=== PATIENT | male | born 1985 | race African-American/Black ===

== ENCOUNTER 2019-02-08 03:46 | Emergency (ER) | payer OTHER, SELFPAY ==
[2019-02-08] MEDS ORDERED: Amoxicillin/Potassium Clav 875 MG TAB ONE (04:34)
[2019-02-08] MEDS ORDERED: Dexamethasone 10 MG/ML VIAL ONE (04:34)
[2019-02-08] MEDS ORDERED: Ketorolac Tromethamine 60 MG/2 ML VIAL ONE (04:34)
--- NOTE | 2019-02-08 07:33 | CT ---
CT ORBITS: Date: 02/08/19 INDICATION: Injury, pain, infection. Right side facial injury. FINDINGS: There is a comminuted, displaced medial right orbital wall fracture with extension of fracture fragme nts into the right ethmoid sinus with associated sinus opacification. There is retrobulbar emphysema, although no significant retrobulbar mass effect. A slight degree of extraconal fat stranding is pres ent, likely edema/mild contusion. Preseptal hematoma and nasal soft tissue hematoma present to the ri ght of midline. The intraocular lenses are intact. The globes maintain appropriate morphology. There is suggestion of a slight degree of right-sided proptosis. The above described medial right orbital w all fracture does involve the region of the right maxillary antrum with associated opacification and fluid level. There is a mild buckling of the right nasal bone. IMPRESSION: 1. Displaced and comminuted medial right orbital wall fracture with fracture extension into the righ t maxillary antrum. There is a slight degree of right-sided proptosis suggested, along with mild extr aconal edema/contusion. There is also mild retrobulbar emphysema. 2. Slight medial deviation of the medial rectus is noted, although there is no direct injury of the muscle into the fracture defect. Recommend clinical correlation to exclude developing signs of entrap ment. Ophthalmology consultation may prove useful, in this regard. POS: CYNDY
== END 2019-02-08 06:00 | disposition home or self-care (01) ==
LOC: ERS 03:46
DX: S02.81XA Fracture of other specified skull and facial bones, right side, initial encounter for closed fracture (principal); J01.80 Other acute sinusitis; B96.89 Other specified bacterial agents as the cause of diseases classified elsewhere; F17.210 Nicotine dependence, cigarettes, uncomplicated; F32.9 Major depressive disorder, single episode, unspecified; X58.XXXA Exposure to other specified factors, initial encounter; Z71.6 Tobacco abuse counseling
CPT/HCPCS: 70480; 96372; 99406; J1100; J1885

== ENCOUNTER 2020-06-13 11:41 | Emergency (ER) | payer SELFPAY ==
[2020-06-13] MEDS ORDERED: Ketorolac Tromethamine 30 MG/ML VIAL ONE (12:39)
== END 2020-06-13 12:59 | disposition home or self-care (01) ==
LOC: ERS 11:41
DX: S29.012A Strain of muscle and tendon of back wall of thorax, initial encounter (principal); F32.9 Major depressive disorder, single episode, unspecified; F17.210 Nicotine dependence, cigarettes, uncomplicated; X50.9XXA Other and unspecified overexertion or strenuous movements or postures, initial encounter
CPT/HCPCS: 99283; J1885

== ENCOUNTER 2020-06-17 17:06 | Emergency (ER) | payer SELFPAY ==
[2020-06-17 18:12] LABS: #Basophils 0.1 thou/uL (0.0-0.2); #Eosinphils 0.1 thou/uL (0.0-0.7); #Lymphocytes 1.5 thou/uL (1.20-3.40); #Monocytes 0.7 thou/uL (0.11-0.59); #Neutrophils 2.6 thou/uL (1.40-6.50); %Basophils 1.1 % (0.0-1.0); %Lymphocytes 30.8 % (21.0-51.0); %Monocytes 13.6 % (0.0-10.0); %Neutrophils 51.6 % (42.0-75.0); Hemoglobin 14.3 g/dL (14.0-18.0); Mean Corpuscular HGB CONC 30.4 g/dL (32.0-36.0); Mean Corpuscular Hemoglobin 25.7 pg (27.0-31.0); Mean Corpuscular Volume 84.7 fL (78.0-98.0); Platelet Count 256 thou/uL (130-400); RBC Distribution Width 13.2 % (11.5-14.5); Red Blood Cell (RBC) Count 5.57 mill/uL (4.70-6.10)
[2020-06-17 18:33] LABS: ALT (SGPT) 38 U/L (8-55); AST (SGOT) 50 U/L (5-34); Albumin 4.3 g/dL (3.5-5.0); Alkaline Phosphatase 107 U/L (40-110); Anion Gap 13 mmol/L (10-20); BUN (Urea Nitrogen) 18 mg/dL (8.9-20.6); Bilirubin, Total 1.1 mg/dL (0.2-1.2); Calc. Creatinine Clearance 0 mL/min (70-130); Calcium 9.4 mg/dL (7.8-10.44); Carbon Dioxide 27 mmol/L (22-29); Chloride 105 mmol/L (98-107); Estimated GFR-MDRD 62; Glucose 100 mg/dL (70-105); Potassium 3.5 mmol/L (3.5-5.1); Protein, Total 8.3 g/dL (6.0-8.3); Sodium 141 mmol/L (136-145)
--- NOTE | 2020-06-17 18:52 | CT ---
CT BRAIN NONCONTRAST: DATE: 06/17/2020 HISTORY: 34-year-old male with vertigo, dizziness, nausea, and vomiting FINDINGS: There is no evidence of acute intra-axial or extra-axial hemorrhage. There is no midline shift or any other mass effect. There is no extra-axial fluid collection. The ventricles are normal in size and configuration. The tympanomastoid cavities, and the upper portions of the paranasal sinuses included in these images, are grossly clear. Calvarium is intact. 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 IMPRESSION: 1. 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 2. Otherwise normal.
[2020-06-17] MEDS ORDERED: Ondansetron ODT 4 MG TAB ONE (19:21)
[2020-06-17] MEDS ORDERED: Meclizine HCl 25 MG TAB ONE (19:21)
== END 2020-06-17 20:03 | disposition home or self-care (01) ==
LOC: ERS 17:06
DX: R11.2 Nausea with vomiting, unspecified (principal); R42 Dizziness and giddiness; F17.210 Nicotine dependence, cigarettes, uncomplicated; E11.649 Type 2 diabetes mellitus with hypoglycemia without coma
CPT/HCPCS: 36415; 70450; 80053; 85025; Q0162

== ENCOUNTER 2020-07-28 18:15 | Emergency (ER) | payer SELFPAY ==
[2020-07-28] MEDS ORDERED: Ondansetron ODT 4 MG TAB ONE (22:02)
[2020-07-28 22:04] LABS: #Basophils 0.1 thou/uL (0.0-0.2); #Eosinphils 0.1 thou/uL (0.0-0.7); #Lymphocytes 1.4 thou/uL (1.20-3.40); #Monocytes 0.7 thou/uL (0.11-0.59); #Neutrophils 2.5 thou/uL (1.40-6.50); %Basophils 1.1 % (0.0-1.0); %Eosinophils 2.7 % (0.0-10.0); %Lymphocytes 29.5 % (21.0-51.0); %Monocytes 14.8 % (0.0-10.0); %Neutrophils 51.9 % (42.0-75.0); Hemoglobin 13.9 g/dL (14.0-18.0); Mean Corpuscular HGB CONC 32.5 g/dL (32.0-36.0); Mean Corpuscular Hemoglobin 27.3 pg (27.0-31.0); Mean Corpuscular Volume 83.9 fL (78.0-98.0); Mean Platelet Volume 7.7 fL (7.4-10.4); Platelet Count 259 thou/uL (130-400); RBC Distribution Width 12.8 % (11.5-14.5); Red Blood Cell (RBC) Count 5.09 mill/uL (4.70-6.10); White Blood Cell (WBC) Count 4.7 thou/uL (4.8-10.8)
[2020-07-28 22:25] LABS: ALT (SGPT) 39 U/L (8-55); AST (SGOT) 49 U/L (5-34); Albumin 4.3 g/dL (3.5-5.0); Alkaline Phosphatase 106 U/L (40-110); Anion Gap 15 mmol/L (10-20); BUN (Urea Nitrogen) 18 mg/dL (8.9-20.6); Bilirubin, Total 1.1 mg/dL (0.2-1.2); Calc. Creatinine Clearance 0 mL/min (70-130); Calcium 9.3 mg/dL (7.8-10.44); Carbon Dioxide 25 mmol/L (22-29); Chloride 103 mmol/L (98-107); Globulin 4.1 g/dL (2.4-3.5); Glucose 86 mg/dL (70-105); Lipase 4 U/L (8-78); Potassium 3.9 mmol/L (3.5-5.1); Protein, Total 8.4 g/dL (6.0-8.3); Sodium 139 mmol/L (136-145)
== END 2020-07-28 23:54 | disposition home or self-care (01) ==
LOC: ERS 18:15
DX: R11.2 Nausea with vomiting, unspecified (principal); F17.210 Nicotine dependence, cigarettes, uncomplicated
CPT/HCPCS: 36415; 80053; 83690; 85025; 99283; Q0162

== ENCOUNTER 2020-08-14 19:36 | Emergency (ER) | payer SELFPAY ==
[2020-08-14 21:52] LABS: #Eosinphils 0.3 thou/uL (0.0-0.7); #Lymphocytes 1.7 thou/uL (1.20-3.40); #Monocytes 0.5 thou/uL (0.11-0.59); #Neutrophils 1.6 thou/uL (1.40-6.50); %Basophils 0.9 % (0.0-1.0); %Eosinophils 7.1 % (0.0-10.0); %Lymphocytes 40.8 % (21.0-51.0); %Monocytes 12.2 % (0.0-10.0); Hemoglobin 15.3 g/dL (14.0-18.0); Mean Corpuscular HGB CONC 32.8 g/dL (32.0-36.0); Mean Corpuscular Hemoglobin 27.8 pg (27.0-31.0); Mean Corpuscular Volume 84.8 fL (78.0-98.0); Mean Platelet Volume 7.6 fL (7.4-10.4); Platelet Count 286 thou/uL (130-400); White Blood Cell (WBC) Count 4.1 thou/uL (4.8-10.8)
[2020-08-14 22:04] LABS: Bilirubin Negative (Negative); Blood, Urine Negative (Negative); Clarity Clear (Clear); Glucose, Urine (Dipstick) Normal (Negative); Ketone, Urine Negative (Negative); Leukocyte Negative Leu/uL (Negative); Nitrite Negative (Negative); Protein, Urine (Dipstick) Negative (Neg-Trace); Specific Gravity, Urine 1.028 (1.002-1.036); Urobilinogen 12 mg/dL (Less than 2); pH, Urine 6.5 (5.0-9.0)
[2020-08-14 22:15] LABS: ALT (SGPT) 27 U/L (8-55); AST (SGOT) 28 U/L (5-34); Albumin 4.1 g/dL (3.5-5.0); Alkaline Phosphatase 106 U/L (40-110); Anion Gap 14 mmol/L (10-20); BUN (Urea Nitrogen) 14 mg/dL (8.9-20.6); Bilirubin, Total 0.4 mg/dL (0.2-1.2); Calc. Creatinine Clearance 0 mL/min (70-130); Calcium 9.2 mg/dL (7.8-10.44); Carbon Dioxide 26 mmol/L (22-29); Chloride 105 mmol/L (98-107); Globulin 3.9 g/dL (2.4-3.5); Glucose 83 mg/dL (70-105); Potassium 4.1 mmol/L (3.5-5.1); Sodium 141 mmol/L (136-145)
--- NOTE | 2020-09-05 21:00 | EKG ---
Test Reason : DIZZINESS Blood Pressure : / mmHG Vent. Rate : 082 BPM Atrial Rate : 082 BPM P-R Int : 136 ms QRS Dur : 090 ms QT Int : 356 ms P-R-T Axes : 060 044 027 degrees QTc Int : 415 ms Normal sinus rhythm with sinus arrhythmia Nonspecific ST abnormality Abnormal ECG Confirmed by SONY GROSS ([id number]), editorial writer CELIA WAGNER ([id number]) on 09/05/2020 9:00:01 PM Referred By: Confirmed By:SONY GROSS
== END 2020-08-14 23:20 | disposition left against medical advice (07) ==
LOC: ERS 19:36
DX: Z53.21 Procedure and treatment not carried out due to patient leaving prior to being seen by health care provider (principal)
CPT/HCPCS: 36415; 80053; 81003; 85025; 93005

== ENCOUNTER 2020-08-15 19:55 | Emergency (ER) | payer SELFPAY ==
[2020-08-15] MEDS ORDERED: Meclizine HCl 25 MG TAB ONE (20:50)
== END 2020-08-15 21:21 | disposition home or self-care (01) ==
LOC: ERS 19:55
DX: H81.399 Other peripheral vertigo, unspecified ear (principal); F17.210 Nicotine dependence, cigarettes, uncomplicated
CPT/HCPCS: 93005